=== PATIENT | male | born 1935 | race Caucasian/White ===

== ENCOUNTER 2018-10-07 20:27 | Inpatient (IN) | payer OTHER ==
[~2018-10-07] VITALS: Ht 177.8 cm; Wt 95.3 kg
[2018-10-07 20:35] VITALS: BP_SYST 146
--- NOTE | 2018-10-07 20:35 | NUR ---
Pt placed to ER bed 05. Pt c/o Lower back pain with urinary retention x 4 hours INDEPENDENT BEAUTY CONSULTANT. Pt s/p colonoscopy on Wednesday. Seen at urgent care on Wednesday and air was seen in his colon. Family members present and state that they noticed wheezing today. Airway pattent, respirations even and non-labored, BBS clear.
--- NOTE | 2018-10-07 20:35 | NUR ---
Denisha beard in ED - 10/07/[address] at [address] Marcial at [facility].
--- NOTE | 2018-10-07 20:40 | NUR ---
Lab at bedside.
--- NOTE | 2018-10-07 20:45 | NUR ---
Dr. Marcial at bedside.
--- NOTE | 2018-10-07 20:50 | NUR ---
X-ray at bedside.
[2018-10-07] MEDS ORDERED: LEVO88TA5 PO (20:52)
[2018-10-07] MEDS ORDERED: PRO40 PO (20:53)
[2018-10-07] MEDS ORDERED: FOLI0.8C PO (20:53)
[2018-10-07] MEDS ORDERED: AMLO2.5T50 PO (20:54)
[2018-10-07] MEDS ORDERED: TAMS0.4C96 PO (20:54)
[2018-10-07] MEDS ORDERED: RIVA15TA PO (20:55)
[2018-10-07] MEDS ORDERED: AMLO5TAB4 PO (20:55)
[2018-10-07] MEDS ORDERED: TERA5CAP4 PO (20:56)
[2018-10-07] MEDS ORDERED: FINA5TAB3 PO (20:56)
[2018-10-07] MEDS ORDERED: LOSA100T3 PO (20:57)
[2018-10-07] MEDS ORDERED: COR12.5 PO (20:57)
--- NOTE | 2018-10-07 21:00 | NUR ---
# 16 FR Victor catheter with use of sterile technique. Immediate return of 150 cc yellow and slightly cloudy urine noted. Bedside drainage bag placed below level of bladder. Urine sample collected and sent to lab. Pt tolerated procedure fair. Pt states that he feels much better after urine drained.
--- NOTE | 2018-10-07 21:06 | NUR ---
Pt to CT via stretcher.
[2018-10-07 21:10] LABS: BILIRUBIN,URINE NEGATIVE (NEGATIVE); CLARITY/URINE CLEAR (CLEAR); COLOR,URINE YELLOW (YELLOW); GLUCOSE,URINE NEGATIVE (NEGATIVE); KETONES,URINE NEGATIVE (NEGATIVE); LEUKOCYTE ESTERASE ,URINE NEGATIVE (NEGATIVE); NITRITE, URINE NEGATIVE (NEGATIVE); PH,URINE 5.5 (5.0-8.0); PROTEIN URINE 1+ (NEGATIVE)
[2018-10-07 21:11] LABS: BLOOD, URINE TRACE (NEGATIVE)
[2018-10-07 21:11] LABS: ANION GAP 10 (5-15); CREATININE 3.71 mg/dL (0.55-1.30); GLUCOSE 106 mg/dL (70-99); HEMATOCRIT 29.1 % (36-54); LYMPHOCYTES % (AUTO) 7.8 % (20.5-51.5); MEAN CORPUSCULAR HEMOGLOBIN 32 pg (27-31); MEAN CORPUSCULAR HGB CONC 34 % (32-36); MEAN CORPUSCULAR VOLUME 94 fL (79.0-98.0); MONOCYTES % (AUTO) 9.8 % (1.7-9.3); NEUTROPHILS % (AUTO) 80.9 % (40.0-70.0); PLATELET COUNT (AUTO) 162 K/uL (130-430); POTASSIUM 5.1 mmol/L (3.5-5.1); RED BLOOD CELL COUNT(AUTO) 3.11 MIL/uL (4.2-6.2); RED CELL DISTRIBUTION WIDTH 13.6 % (9.0-15.0); UREA NITROGEN, BLOOD 55 mg/dL (8-21); WHITE BLOOD COUNT (AUTO) 9.2 K/uL (4.8-10.8)
[2018-10-07 21:12] LABS: BASOPHILS % (AUTO) 0.2 % (0.0-2.0); EOSINOPHILS # (AUTO) 0.1 K/uL (0.0-0.4); EOSINOPHILS % (AUTO) 1.3 % (0.0-4.0); LYMPHOCYTES # (AUTO) 0.7 K/uL (1.0-5.5); MONOCYTES # (AUTO) 0.9 K/uL (0.0-1.0); NEUTROPHILS # (AUTO) 7.5 K/uL (1.8-7.7)
[2018-10-07 21:15] LABS: ALANINE AMINOTRANSFERASE 80 U/L (12-78); ASPARTATE AMINOTRANSFERASE 62 U/L (10-37); TOTAL BILIRUBIN 0.7 mg/dL (0.0-1.0)
[2018-10-07 21:17] LABS: SODIUM SERUM 113 mmol/L (136-145)
--- NOTE | 2018-10-07 21:17 | NUR ---
Pt returns from CT.
[2018-10-07 21:18] LABS: BACTERIA,URINE MODERATE /HPF (None Seen); WBC,URINE 0-3 /HPF (0-3)
[2018-10-07 21:18] LABS: CHLORIDE 83 mmol/L (98-107)
[2018-10-07 21:19] LABS: URINE AMORPHOUS URATE 2+ /HPF (None Seen)
[2018-10-07] MEDS ORDERED: AMOX-423 PO (21:23)
[2018-10-07] MEDS ORDERED: NACL 0.9% 1,000 ML IV ONE ×2 (21:30→22:45)
--- NOTE | 2018-10-07 21:30 | NUR ---
Pt sitting up in bed, denies c/o pain or discomfort, no needs verbalized. Total U/O per F/C 170 mL. Family members at bedside.
--- NOTE | 2018-10-07 22:43 | NUR ---
Dr. Marcial at bedside to update on POC.
[2018-10-07] MEDS ORDERED: LACTULOSE 20 GM/30 ML UDC PO ONE (23:00)
--- NOTE | 2018-10-08 00:12 | NUR ---
Patient will be admitted to care of Dr. Hazel. Admitted to Med/Surg unit. Will go to room 133A. Belongings list completed. Summary report printed. Phone report given to VANESSA Todd.
--- NOTE | 2018-10-08 00:25 | NUR ---
ADMISSION: The patient, TAL FIERRO, 83 y/o, M admitted by ZOHAIB JIMÉNEZ DO, WITH THE DIAGNOSIS OF HYPONATREMIA ,ER WHEELED PT TO ROOM 135 , AFTER ADMISSION WILL MOVE PT TO 133 A was given written information regarding hospital policies, unit procedures and contact persons.
[2018-10-08 00:27] VITALS: BP_SYST 141
[2018-10-08] MEDS ORDERED: DOCUSATE SODIUM 100 MG CAPSULE PO PRN (01:15)
[2018-10-08] MEDS ORDERED: ONDANSETRON HCL 4 MG/2 ML VIAL IVP PRN (01:15)
[2018-10-08] MEDS: NACL 0.9% 1,000 ML IV SCH ×3 (01:15→22:12)
[2018-10-08] MEDS ORDERED: MORPHINE 4 MG/ML INJ. SYRINGE IVP PRN (01:15)
[2018-10-08] MEDS ORDERED: MUPIROCIN 2% TOPICAL OINTMENT 22 GM TP PRN (01:15)
--- NOTE | 2018-10-08 02:30 | NUR ---
NURSING NOTE PT RESTING IN BED WITH EYES CLOSED. APPEARS COMFORTABLE. VISIBLE SYMMETRICAL RISE AND FALL OF CHEST. NO SIGNS OF ACUTE DISTRESS. SAFETY PRECAUTIONS IN PLACE: BED IN LOWEST POSITION, CALL LIGHT WITH PT, SIDE RAILS UP X 2, BED ALARM ON. WILL MONITOR.
--- NOTE | 2018-10-08 04:31 | NUR ---
NURSING NOTE PT RESTING IN BED WITH EYES CLOSED. APPEARS COMFORTABLE, EVEN RISE AND FALL OF CHEST TO ROOM AIR. NO NOTED DISTRESS AT THIS TIME. IVF INFUSING ORDERED. SAFETY PRECAUTIONS OBSERVED. WILL MONITOR.
--- NOTE | 2018-10-08 05:38 | NUR ---
CONSULTATION PAGED/CALLED Reason for Consultation: CIRRHOTIC FEATURES SEEN ON CT Person Who was Notified: SUZETTE Consulting Physician: DR. HYMAN Air Traffic Supervisor Specialty: GI Ordering Physician: ZOHAIB MONTGOMERY
--- NOTE | 2018-10-08 05:43 | NUR ---
CONSULTATION PAGED/CALLED Reason for Consultation: KIDNEY FAILURE Person Who was Notified: SUZETTE Consulting Physician: MARIANELA TORRE Medical Office Supervisor Specialty: NEPHRO Ordering Physician: ZOHAIB MONTGOMERY
[2018-10-08] MEDS: PANTOPRAZOLE SODIUM 40 MG TAB PO SCH (06:21)
--- NOTE | 2018-10-08 06:45 | NUR ---
SPOKE WITH DR. JIMÉNEZ REGARDING PT'S REQUEST FOR SLEEP MEDICATION DUE TO INSOMNIA. NEW ORDER RECEIVED. WILL CARRY OUT.
[2018-10-08 06:51] LABS: BASOPHILS % (AUTO) 0.2 % (0.0-2.0); EOSINOPHILS # (AUTO) 0.1 K/uL (0.0-0.4); EOSINOPHILS % (AUTO) 1.2 % (0.0-4.0); HEMATOCRIT 29.3 % (36-54); HEMOGLOBIN 9.5 g/dL (14.0-18.0); LYMPHOCYTES # (AUTO) 0.7 K/uL (1.0-5.5); LYMPHOCYTES % (AUTO) 7.8 % (20.5-51.5); MEAN CORPUSCULAR HEMOGLOBIN 31 pg (27-31); MEAN CORPUSCULAR HGB CONC 32 % (32-36); MEAN CORPUSCULAR VOLUME 95 fL (79.0-98.0); MONOCYTES # (AUTO) 0.8 K/uL (0.0-1.0); MONOCYTES % (AUTO) 9.6 % (1.7-9.3); NEUTROPHILS # (AUTO) 6.9 K/uL (1.8-7.7); NEUTROPHILS % (AUTO) 81.2 % (40.0-70.0); PLATELET COUNT (AUTO) 184 K/uL (130-430); RED CELL DISTRIBUTION WIDTH 12.7 % (9.0-15.0); WHITE BLOOD COUNT (AUTO) 8.5 K/uL (4.8-10.8)
--- NOTE | 2018-10-08 06:52 | NUR ---
CLOSING NOTE PT RESTING IN BED, NO REPORTS OF PAIN. IVF INFUSING ORDERED. ALL NEEDS MET DURING SHIFT. WILL ENDORSE CARE TO DAY SHIFT RN.
--- NOTE | 2018-10-08 07:06 | NUR ---
Dr. Mariposa Monge saw the patient at the bedside. Informed us that he will order for tap water enema and laxative as needed. Will endorse to AM nurse.
[2018-10-08 07:13] LABS: CHLORIDE 89 mmol/L (98-107); POTASSIUM 4.4 mmol/L (3.5-5.1); SODIUM SERUM 120 mmol/L (136-145)
[2018-10-08 07:14] LABS: ANION GAP 11 (5-15); CALCIUM 8.1 mg/dL (8.4-11.0); CREATININE 3.63 mg/dL (0.55-1.30); GLUCOSE 99 mg/dL (70-99); UREA NITROGEN, BLOOD 52 mg/dL (8-21)
[2018-10-08] MEDS: LEVOTHYROXINE SODIUM 0.088 MG TABLET PO SCH (07:14)
[2018-10-08 07:29] LABS: AMYLASE 60 U/L (0-100); LIPASE 326 U/L (73-393); PHOSPHORUS 3.6 mg/dL (2.7-4.5); THYROID STIMULATING HORMONE 3.34 uIu/mL (0.36-3.74)
[2018-10-08 07:42] VITALS: BP_SYST 134
--- NOTE | 2018-10-08 07:43 | NUR ---
Neuro Alert/oriented x4 , denies any pain , abdomen is distended denies any pain ,passing gas as verbalized ,plan of care/safety , lab result discussed with patient and son Quintin verbalized understanding.
[2018-10-08 07:50] LABS: CHOLESTEROL 93 mg/dL (<200); TRIGLYCERIDES 79 mg/dL (30-150)
[2018-10-08 07:51] LABS: HDL CHOLESTEROL 24 mg/dL (>45); LDL CHOLESTEROL 60 mg/dL (<100)
[2018-10-08] MEDS ORDERED: amLODIPine BESYLATE 5 MG TABLET PO SCH (09:00)
[2018-10-08] MEDS: TAMSULOSIN HCL 0.4 MG CAP PO SCH (09:23)
[2018-10-08] MEDS: amLODIPine BESYLATE 5 MG TABLET PO SCH (09:23)
[2018-10-08] MEDS: FINASTERIDE 5 MG TABLET (PROSCAR) PO SCH (09:23)
[2018-10-08] MEDS: CARVEDILOL 12.5 MG TABLET (COREG) PO SCH (09:24)
[2018-10-08] MEDS: POLYETHYLENE GLYCOL 3350, 17 GM/ POWD.PACK PO SCH ×2 (09:25→20:46)
--- NOTE | 2018-10-08 10:12 | NUR ---
MD rounds Seen and examined by Dr. Hazel at the bedside , patient alert/oriented , aware of what is happening , medication familiarity, spoke to family and patient explained plan of care verbalized understanding.
--- NOTE | 2018-10-08 10:40 | NUR ---
GI Assisted patient to bedside commode steady gait stand bye assist no dizziness , had a soft large bowel movement brown color , perineal care given, safety/fall precaution initiated. Addendum: 10/08/18 at 1051 by Daly Vargas RN Victor catheter urine pink no blood clot , perneal area with old blood , perineal care given no active bleeding, explained to patient possible cause of bleeding patient taking xarelto anf prostate problem,venalized understanding will continue to monitor.
[2018-10-08 11:18] VITALS: BP_SYST 144
[2018-10-08 13:13] LABS: ANION GAP 11 (5-15); CALCIUM 8.1 mg/dL (8.4-11.0); CREATININE 3.48 mg/dL (0.55-1.30); GLUCOSE 102 mg/dL (70-99); POTASSIUM 4.7 mmol/L (3.5-5.1); UREA NITROGEN, BLOOD 52 mg/dL (8-21)
--- NOTE | 2018-10-08 13:15 | NUR ---
Tap water enema Explained to patient tap water enema procedure step by step explained to patient and son Thomas verbalized understanding., position in left lateral, lubricated tip of the tube inserted slowly about 4 inches no resistance release water slowly , patient can feel it , put bed chatterjee as needed came out soft stool brown color medium amount , denies any discomfort, 1 1/2 liter tap water enema completed, perineal care given, patient instructed to call RN if he feel he is wet for cleaning.
[2018-10-08 13:17] LABS: CHLORIDE 85 mmol/L (98-107)
[2018-10-08 13:18] LABS: SODIUM SERUM 116 mmol/L (136-145)
--- NOTE | 2018-10-08 13:34 | NUR ---
Aylin Luna for critical lab result NA 116
[2018-10-08] MEDS ORDERED: NACL 0.9% 1,000 ML IV SCH (14:00)
--- NOTE | 2018-10-08 15:10 | NUR ---
Seen and examined by naturopathic physician spoke to patient and son Thomas explained progress and plan of care , continue IV saline monitoring sodium level.
[2018-10-08] MEDS ORDERED: SIMETHICONE 80 MG TAB.CHEW PO ONE (15:15)
--- NOTE | 2018-10-08 15:20 | NUR ---
GI Patient complaining of abdominal distention, passing gas at times ,simethicone po given as prescribed by DR. Luna, explained medication indication/side effect verbalized understanding.
[2018-10-08 16:32] VITALS: BP_SYST 131
[2018-10-08] MEDS: RIVAROXABAN 15 MG TABLET PO SCH (18:00)
--- NOTE | 2018-10-08 18:06 | NUR ---
Xarelto on hold today Spoke to Dr. JIMÉNEZ , urine output the whole day is pink to red no blood clot no active bleeding penile area after cleaning in the morning , per Dr. Jiménez to hold the dose for today, patient and daughter Arleen informed the reason, verbalized understanding.
--- NOTE | 2018-10-08 18:39 | NUR ---
Patient instructed NPO post midnight for abdominal ultrasound in AM, verbalized understanding.
--- NOTE | 2018-10-08 19:21 | NUR ---
OPENING NOTE RECEIVED CARE OF PT. PT LYING IN BED, APPEARS COMFORTABLE, FAMILY AT BEDSIDE. NO ACUTE DISTRESS NOTED. INSTRUCTED PT TO CALL FOR ASSISTANCE. SAFETY PRECAUTIONS IN PLACE. WILL MONITOR.
[2018-10-08 20:00] VITALS: BP_SYST 121
[2018-10-08 20:39] LABS: ANION GAP 9 (5-15); CALCIUM 7.8 mg/dL (8.4-11.0); CHLORIDE 88 mmol/L (98-107); CREATININE 3.44 mg/dL (0.55-1.30); GLUCOSE 109 mg/dL (70-99); POTASSIUM 4.6 mmol/L (3.5-5.1); UREA NITROGEN, BLOOD 50 mg/dL (8-21)
[2018-10-08] MEDS: TEMAZEPAM 15 MG CAPSULE PO PRN (20:45)
[2018-10-08] MEDS: SIMETHICONE 80 MG TAB.CHEW PO SCH (20:45)
--- NOTE | 2018-10-08 20:45 | NUR ---
INSOMNIA/RESTORIL ADMINISTERED PT REPORTING INSOMNIA. RESTORIL 15 MG PO ADMINISTERED. MEDICATION AND POTENTIAL SIDE EFFECTS EXPLAINED. SAFETY PRECAUTIONS IN PLACE, FAMILY AT BEDSIDE. WILL MONITOR.
[2018-10-08] MEDS: TERAZOSIN HCL 5 MG CAPSULE (HYTRIN) PO SCH (20:46)
[2018-10-08 20:54] LABS: SODIUM SERUM 117 mmol/L (136-145)
--- NOTE | 2018-10-08 20:55 | NUR ---
CRITICAL SODIUM LAB SPOKE TO RESHMA FROM LAB, WAS INFORMED PT'S SODIUM WAS 117. WILL FOLLOW UP WITH .
--- NOTE | 2018-10-08 21:01 | NUR ---
PAGED DR. FORD PAGED DR. FORD REGARDING A CRITICAL SODIUM VALUE. SPOKE TO KWAKU FROM EXCHANGE. WILL AWAIT CALL BACK.
[2018-10-08 21:06] LABS: CHLORIDE,URINE RANDOM 34 mmol/L (55-125); URINE SODIUM, RANDOM 25 mmol/L (40-220)
--- NOTE | 2018-10-08 21:16 | NUR ---
PAGED DR. FORD SECOND TIME PAGED DR. FORD REGARDING CRITICAL SODIUM VALUE OF 117. SPOKE WITH KWAKU FROM EXCHANGE.
--- NOTE | 2018-10-08 21:30 | NUR ---
PAGED DR. FORD THIRD TIME PAGED DR. FORD THIRD TIME REGARDING CRITICAL SODIUM VALUE 117. SPOKE WITH KWAKU FROM EXCHANGE.
--- NOTE | 2018-10-08 21:45 | NUR ---
PAGED DR. FORD FOURTH TIME PAGED DR. FORD REGARDING CRITICAL SODIUM VALUE 117. SPOKE WITH JOSE FROM EXCHANGE.
--- NOTE | 2018-10-08 21:47 | NUR ---
SPOKE WITH DR. FORD REGARDING PT'S CRITICAL SODIUM OF 117. RECEIVED NEW ORDERS. WILL CARRY OUT.
--- NOTE | 2018-10-08 23:27 | NUR ---
NURSING NOTE PT RESTING IN BED WITH EYES CLOSED. APPEARS COMFORTABLE AT THIS TIME. NO ACUTE DISTRESS NOTED. BREATHING IS EVEN AND EFFORTLESS TO ROOM AIR, VISIBLE SYMMETRICAL RISE AND FALL OF CHEST. IVF INFUSING AT ORDERED RATE. SAFETY PRECAUTIONS IN PLACE. WILL MONITOR.
--- NOTE | 2018-10-09 | NUR ---
NPO AT MIDNIGHT NPO [place]E PLACED AT BEDSIDE, FOOD AND DRINK REMOVED FROM PT AREA, PT EDUCATED REGARDING NPO STATUS. WILL MONITOR.
[2018-10-09 00:12] VITALS: BP_SYST 128
--- NOTE | 2018-10-09 02:15 | NUR ---
NEW IV IN LEFT FOREARM NEW IV GAUGE 22 INSERTED IN LEFT FOREARM. GOOD BLOOD RETURN AND FLUSHING WELL. PT TOLERATED WELL. IVF INFUSING ORDERED. WILL MONITOR.
--- NOTE | 2018-10-09 04:05 | NUR ---
NURSING NOTE PT RESTING IN BED WITH EYES CLOSED. NO SIGN OF ACUTE DISTRESS NOTED. VISIBLE SYMMETRICAL RISE AND FALL OF CHEST. SAFETY PRECAUTIONS IN PLACE. WILL MONITOR.
--- NOTE | 2018-10-09 05:18 | NUR ---
COMPLETE LINEN CHANGE PT HAD SMALL BM. PT CHANGED AND LINEN CHANGE DONE. PT DENIES PAIN AT THIS TIME. PT REPOSITIONED FOR COMFORT. NO SIGNS OF DISTRESS. SAFETY PRECAUTIONS IN PLACE. WILL MONITOR.
--- NOTE | 2018-10-09 06:12 | NUR ---
CLOSING NOTE PT RESTING IN BED, DENIES CURRENT PAIN, APPEARS COMFORTABLE. NO ACUTE DISTRESS. IVF INFUSING ORDERED. ALL NEEDS MET DURING SHIFT. WILL ENDORSE CARE TO DAY SHIFT RN.
[2018-10-09] MEDS: PANTOPRAZOLE SODIUM 40 MG TAB PO SCH (06:24)
[2018-10-09] MEDS: LEVOTHYROXINE SODIUM 0.088 MG TABLET PO SCH (06:24)
--- NOTE | 2018-10-09 06:54 | NUR ---
ROUNDS-DR. GLEZ SPOKE WITH DR. GLEZ REGARDING PT'S PLAN OF CARE. DR. GLEZ SAID THAT HE WILL CONTINUE MIRALAX FOR THE PT.
[2018-10-09 07:12] LABS: INR 1.1 (0.80-1.20); PROTHROMBIN TIME 11.3 SECS (9.5-12.5)
[2018-10-09 07:16] LABS: ANION GAP 10 (5-15); CALCIUM 7.7 mg/dL (8.4-11.0); CHLORIDE 89 mmol/L (98-107); CREATININE 3.34 mg/dL (0.55-1.30); GLUCOSE 96 mg/dL (70-99); PHOSPHORUS 3.2 mg/dL (2.7-4.5); POTASSIUM 4.7 mmol/L (3.5-5.1); UREA NITROGEN, BLOOD 49 mg/dL (8-21)
[2018-10-09 07:18] LABS: BASOPHILS % (AUTO) 0.1 % (0.0-2.0); EOSINOPHILS # (AUTO) 0.1 K/uL (0.0-0.4); EOSINOPHILS % (AUTO) 1.2 % (0.0-4.0); HEMATOCRIT 27.5 % (36-54); HEMOGLOBIN 9.3 g/dL (14.0-18.0); LYMPHOCYTES # (AUTO) 0.6 K/uL (1.0-5.5); LYMPHOCYTES % (AUTO) 9.2 % (20.5-51.5); MEAN CORPUSCULAR HEMOGLOBIN 32 pg (27-31); MEAN CORPUSCULAR HGB CONC 34 % (32-36); MEAN CORPUSCULAR VOLUME 93 fL (79.0-98.0); MONOCYTES # (AUTO) 0.9 K/uL (0.0-1.0); MONOCYTES % (AUTO) 13.6 % (1.7-9.3); NEUTROPHILS # (AUTO) 5.3 K/uL (1.8-7.7); NEUTROPHILS % (AUTO) 75.9 % (40.0-70.0); PLATELET COUNT (AUTO) 173 K/uL (130-430); RED BLOOD CELL COUNT(AUTO) 2.95 MIL/uL (4.2-6.2); RED CELL DISTRIBUTION WIDTH 12.5 % (9.0-15.0); WHITE BLOOD COUNT (AUTO) 6.9 K/uL (4.8-10.8)
--- NOTE | 2018-10-09 07:25 | NUR ---
received patient report at the bedside. patient is aao x 4. no sob nor pain noted. has iv access on the left forearm #22. with iv fluids of normal saline 100cc/hr infusing on well. lungs bilaterally clear. abdomen soft and non distended. has quezada catheter in placed draining orange color about 350cc. instructed to call for assistance. will continue to monitor patients status.
[2018-10-09 07:33] LABS: SODIUM SERUM 118 mmol/L (136-145)
[2018-10-09 07:50] LABS: TOTAL IRON BIND. CAPACITY 190 ug/dL (250-450)
--- NOTE | 2018-10-09 08:01 | NUR ---
and daughther is at the bedside. no distress noted.
--- NOTE | 2018-10-09 08:01 | NUR ---
still on npo status for ultrasound of the abdomen. patient is aware.
[2018-10-09 08:02] VITALS: BP_SYST 139
--- NOTE | 2018-10-09 08:03 | NUR ---
dr brasher called for result of Na 118. awaiting to call back.
--- NOTE | 2018-10-09 08:13 | NUR ---
WELDING INSPECTOR FLORIST, DR FORD WAS CALLED RE: ELEVATED NA. SPOKE TO MEGAN.
--- NOTE | 2018-10-09 08:15 | NUR ---
dr brasher called no order made. will come to see the patient today.
--- NOTE | 2018-10-09 08:40 | NUR ---
elizabeth biometrics technician called will come to do procedure.
[2018-10-09] MEDS: FINASTERIDE 5 MG TABLET (PROSCAR) PO SCH (09:00)
--- NOTE | 2018-10-09 09:48 | NUR ---
just had ultrsound of the abdomen done. awaiting for results.
[2018-10-09] MEDS: CARVEDILOL 12.5 MG TABLET (COREG) PO SCH (10:10)
[2018-10-09] MEDS: POLYETHYLENE GLYCOL 3350, 17 GM/ POWD.PACK PO SCH ×2 (10:10→20:47)
[2018-10-09] MEDS: TAMSULOSIN HCL 0.4 MG CAP PO SCH (10:11)
[2018-10-09] MEDS: SIMETHICONE 80 MG TAB.CHEW PO SCH ×3 (10:11→20:45)
[2018-10-09] MEDS: amLODIPine BESYLATE 5 MG TABLET PO SCH (10:11)
[2018-10-09] MEDS: NACL 0.9% 1,000 ML IV SCH (10:15)
--- NOTE | 2018-10-09 10:29 | NUR ---
dr sandoval came and see the patient. made orders. for physical therapy evaluation tomorrow.
[2018-10-09] MEDS ORDERED: FLUTICASONE PROPIONATE 50 mCg/SPRAY 16 GM NS ONE (10:30)
[2018-10-09] MEDS ORDERED: IPRATROPIUM/ALBUTEROL SULFATE 3 ML AMPUL.NEB (DUONEB) INH PRN (10:30)
--- NOTE | 2018-10-09 10:40 | NUR ---
medication given and had tray for breakfast after ultrasound of abdomen.
--- NOTE | 2018-10-09 11:52 | NUR ---
hob elevated. family at the bedside. non productive cough noted.
[2018-10-09 12:28] VITALS: BP_SYST 122
--- NOTE | 2018-10-09 12:30 | NUR ---
whole family at the bedside. still with bilateral crackels
--- NOTE | 2018-10-09 13:30 | NUR ---
dr brasher called requested to have patient on telemetry monitored.
--- NOTE | 2018-10-09 13:32 | NUR ---
dr brasher came and evaluate made orders.
[2018-10-09] MEDS ORDERED: FUROSEMIDE 40 MG/4 ML VIAL IVP ONE (13:45)
--- NOTE | 2018-10-09 14:10 | NUR ---
lasix 49 mg iv given. lungs bilaterally with crackles. O2Sat on room air is 97%. no sob noted. normal saline iv decreased on 30cc/hr infusing on well. call lights within reach. instructed to call for assistance.
--- NOTE | 2018-10-09 15:30 | NUR ---
respiratory treatment given by the therapist at this time. feels better
[2018-10-09 16:06] LABS: HEPATITIS A AB, IgM Negative (Negative); HEPATITIS B CORE AB, IgM Negative (Negative); HEPATITIS B SURFACE AG Negative (Negative)
[2018-10-09 16:20] VITALS: BP_SYST 130
--- NOTE | 2018-10-09 16:30 | NUR ---
FAMILY AT THE BEDSIDE. NO ACUTE DISTRESS NOTED.
[2018-10-09 16:34] VITALS: BP_SYST 122
--- NOTE | 2018-10-09 18:00 | NUR ---
xarelto 15 mg po given. no sob nor distress noted.
[2018-10-09] MEDS: MONTELUKAST 10 MG TABLET PO SCH (18:06)
[2018-10-09] MEDS: RIVAROXABAN 15 MG TABLET PO SCH (18:07)
--- NOTE | 2018-10-09 19:05 | NUR ---
ENDORSED TO JULIETH RN AT THE BEDSIDE. PATIENT IS STABLE.
--- NOTE | 2018-10-09 19:10 | NUR ---
OPENING NOTE Bedside report received from VANESSA Dahl. Patient received lying in bed, HOB raised, no s/s of acute distress noted. Breathing is even and unlabored. IVF infusing well, IV site patent, no signs of infiltration or infection. Victor attached, secured, and draining by gravity. Patient's and daughter present at bedside. Call light with patient. Bed alarm on. SCDs attached and operating. Will continue to monitor.
[2018-10-09 19:38] LABS: ANION GAP 10 (5-15); CALCIUM 7.8 mg/dL (8.4-11.0); CHLORIDE 90 mmol/L (98-107); CREATININE 3.47 mg/dL (0.55-1.30); GLUCOSE 106 mg/dL (70-99); POTASSIUM 4.8 mmol/L (3.5-5.1); SODIUM SERUM 121 mmol/L (136-145); UREA NITROGEN, BLOOD 50 mg/dL (8-21)
[2018-10-09 20:00] VITALS: BP_SYST 140
[2018-10-09] MEDS: TEMAZEPAM 15 MG CAPSULE PO PRN (20:46)
[2018-10-09] MEDS: TERAZOSIN HCL 5 MG CAPSULE (HYTRIN) PO SCH (20:46)
[2018-10-09] MEDS: FLUTICASONE PROPIONATE 50 mCg/SPRAY 16 GM NS SCH (20:47)
--- NOTE | 2018-10-09 21:00 | NUR ---
SPOEK WITH DR JIMÉNEZ:BNP TEST Informed Dr. Jiménez that family would like to have BNP taken again. MD ordered for it to be drawn in the morning. Family members and patient made aware. Patient in bed, no signs of discomfort noted. Chest rise and fall even bilaterally. Call light with patient. Bed alarm on. Will continue to monitor.
--- NOTE | 2018-10-09 23:00 | NUR ---
ROUNDS Patient in bed sleeping at this time. No s/s of acute distress noted. IVF infusing well. Victor attached, secured and draining by gravity. SCDs attached and operating. Will continue to monitor. Call light with patient.
[2018-10-10 00:41] VITALS: BP_SYST 132
--- NOTE | 2018-10-10 01:00 | NUR ---
ROUNDS Patient sleeping comfortably. HOB raised, no signs of discomfort noted. Chest rise and fall even bilaterally. IVF infusing well. Call light with patient. Bed alarm on. Will continue to monitor.
--- NOTE | 2018-10-10 02:00 | NUR ---
BREATHING TREATMENT Patient requested for breathing treatment at this time. RT at bedside.
--- NOTE | 2018-10-10 04:00 | NUR ---
ROUNDS Patient in bed sleeping. No signs of discomfort noted. Chest rise and fall even bilaterally. IVF infusing well. Call light with patient. Bed alarm on. Will continue to monitor.
[2018-10-10] MEDS: NACL 0.9% 1,000 ML IV SCH (04:07)
[2018-10-10] MEDS: PANTOPRAZOLE SODIUM 40 MG TAB PO SCH (06:12)
[2018-10-10] MEDS: LEVOTHYROXINE SODIUM 0.088 MG TABLET PO SCH (06:12)
[2018-10-10 06:26] LABS: BASOPHILS % (AUTO) 0.5 % (0.0-2.0); EOSINOPHILS # (AUTO) 0.2 K/uL (0.0-0.4); EOSINOPHILS % (AUTO) 2.9 % (0.0-4.0); HEMATOCRIT 27.7 % (36-54); HEMOGLOBIN 9.2 g/dL (14.0-18.0); LYMPHOCYTES # (AUTO) 0.8 K/uL (1.0-5.5); LYMPHOCYTES % (AUTO) 12.2 % (20.5-51.5); MEAN CORPUSCULAR HEMOGLOBIN 31 pg (27-31); MEAN CORPUSCULAR HGB CONC 33 % (32-36); MEAN CORPUSCULAR VOLUME 95 fL (79.0-98.0); MONOCYTES # (AUTO) 0.9 K/uL (0.0-1.0); MONOCYTES % (AUTO) 13.4 % (1.7-9.3); NEUTROPHILS # (AUTO) 4.7 K/uL (1.8-7.7); PLATELET COUNT (AUTO) 188 K/uL (130-430); RED BLOOD CELL COUNT(AUTO) 2.92 MIL/uL (4.2-6.2); RED CELL DISTRIBUTION WIDTH 12.9 % (9.0-15.0); WHITE BLOOD COUNT (AUTO) 6.6 K/uL (4.8-10.8)
--- NOTE | 2018-10-10 06:29 | NUR ---
CLOSING NOTE Patient in bed resting at this time. No s/s of acute distress noted. Breathing even and unlabored. HOB raised. Patient denies pain or discomfort at this time. Victor attached, secured and draining by gravity. SCDs attached and operating. Patient's present at bedside. Patient turned/repositioned every two hours throughout shift. All needs met throughout shift. Fall and safety precautions maintained throughout shift. Will continue to monitor until patient care is endorsed to oncoming dayshift nurse.
[2018-10-10 06:48] LABS: ALANINE AMINOTRANSFERASE 67 U/L (12-78); ALBUMIN 2.6 g/dL (3.4-4.8); ANION GAP 9 (5-15); ASPARTATE AMINOTRANSFERASE 37 U/L (10-37); CHLORIDE 91 mmol/L (98-107); CREATININE 3.52 mg/dL (0.55-1.30); GLUCOSE 90 mg/dL (70-99); PHOSPHORUS 3.6 mg/dL (2.7-4.5); POTASSIUM 4.6 mmol/L (3.5-5.1); SODIUM SERUM 121 mmol/L (136-145); TOTAL BILIRUBIN 0.7 mg/dL (0.0-1.0); UREA NITROGEN, BLOOD 49 mg/dL (8-21)
[2018-10-10 08:00] VITALS: BP_SYST 137
--- NOTE | 2018-10-10 09:23 | NUR ---
Pulmo consult called: for Dr. Bautista, regarding SOB, ordered by Dr. Weber.
[2018-10-10] MEDS: SIMETHICONE 80 MG TAB.CHEW PO SCH ×3 (09:30→20:54)
[2018-10-10] MEDS ORDERED: IPRATROPIUM BROM 0.5 MG/2.5 ML VIAL.NEB (ATROVENT) INH PRN (09:30)
[2018-10-10] MEDS: FINASTERIDE 5 MG TABLET (PROSCAR) PO SCH (09:30)
[2018-10-10] MEDS ORDERED: IPRATROPIUM BROM 0.5 MG/2.5 ML VIAL.NEB (ATROVENT) INH ONE (09:30)
[2018-10-10] MEDS ORDERED: ALBUTEROL SULFATE 0.083% 2.5 MG/3 ML VIAL.NEB INH PRN (09:30)
[2018-10-10] MEDS: amLODIPine BESYLATE 5 MG TABLET PO SCH (09:30)
[2018-10-10] MEDS ORDERED: ALBUTEROL SULFATE 0.083% 2.5 MG/3 ML VIAL.NEB INH ONE (09:30)
[2018-10-10] MEDS: POLYETHYLENE GLYCOL 3350, 17 GM/ POWD.PACK PO SCH ×2 (09:31→20:54)
[2018-10-10] MEDS: TAMSULOSIN HCL 0.4 MG CAP PO SCH (09:31)
[2018-10-10] MEDS: FLUTICASONE PROPIONATE 50 mCg/SPRAY 16 GM NS SCH ×2 (09:35→20:55)
[2018-10-10] MEDS: CARVEDILOL 12.5 MG TABLET (COREG) PO SCH (10:21)
[2018-10-10] MEDS ORDERED: methylPREDNISolone SOD SUCC 40 MG/ML VIAL IVP ONE (10:45)
[2018-10-10] MEDS: PIPERACILLIN/TAZO 2.25G/DEX-IS 50 ML IV SCH ×3 (11:46→23:05)
[2018-10-10 12:43] VITALS: BP_SYST 124
[2018-10-10] MEDS ORDERED: FUROSEMIDE 40 MG/4 ML VIAL ONE (17:03)
[2018-10-10] MEDS ORDERED: METOLAZONE 5 MG TABLET ONE (17:07)
[2018-10-10] MEDS: MONTELUKAST 10 MG TABLET PO SCH (18:00)
[2018-10-10] MEDS: RIVAROXABAN 15 MG TABLET PO SCH (18:00)
--- NOTE | 2018-10-10 20:10 | NUR ---
Opening note: Received report from scout MENDEZ. Patient is sitting in recliner at bedside surrounded by family members. Patient not in any acute distress. Alert and oriented x3. Receiving NS at 30 ML/HR to LFA IV site, site is patent and benign. Victor catheter draining yellow urine to gravity. Call light is with patient. Safety, fall precautions in place. Will continue with plan of care.
[2018-10-10] MEDS: IPRATROPIUM BROM 0.5 MG/2.5 ML VIAL.NEB (ATROVENT) INH SCH ×2 (20:32→23:00)
[2018-10-10] MEDS: ALBUTEROL SULFATE 0.083% 2.5 MG/3 ML VIAL.NEB INH SCH ×2 (20:32→23:00)
[2018-10-10 20:39] VITALS: BP_SYST 135
[2018-10-10] MEDS: TERAZOSIN HCL 5 MG CAPSULE (HYTRIN) PO SCH (20:54)
[2018-10-10] MEDS: methylPREDNISolone SOD SUCC 40 MG/ML VIAL IVP SCH (20:55)
--- NOTE | 2018-10-10 22:21 | NUR ---
Rounds: Patient is awake in bed, is at bedside. Patient does not show any acute distress. Respirations are even, unlabored on room air. Call light with patient. Will continue monitoring.
--- NOTE | 2018-10-11 00:32 | NUR ---
Rounds: Patient is resting comfortably with eyes closed, does not show any acute distress. Breathing is even and unlabored on room air. Call light with patient. Safety, fall precautions in place. Will continue monitoring.
[2018-10-11 01:24] VITALS: BP_SYST 130
--- NOTE | 2018-10-11 02:41 | NUR ---
Rounds: Patient is resting in bed with eyes closed, no acute distress noted. Respirations even, unlabored on room air. Call light is with patient. Will continue to monitor.
[2018-10-11] MEDS: IPRATROPIUM BROM 0.5 MG/2.5 ML VIAL.NEB (ATROVENT) INH SCH ×6 (03:00→23:00)
[2018-10-11] MEDS: ALBUTEROL SULFATE 0.083% 2.5 MG/3 ML VIAL.NEB INH SCH ×6 (03:00→23:00)
--- NOTE | 2018-10-11 04:56 | NUR ---
Rounds: Patient is sleeping. No acute distress. Breathing is even and unlabored on room air. Call light is with patient. Will continue monitoring.
[2018-10-11 05:12] LABS: CERULOPLASMIN 23.3 mg/dL (16.0-31.0); FERRITIN 196 ng/mL (30-400)
[2018-10-11] MEDS: PIPERACILLIN/TAZO 2.25G/DEX-IS 50 ML IV SCH ×4 (05:47→23:22)
[2018-10-11] MEDS: PANTOPRAZOLE SODIUM 40 MG TAB PO SCH (06:32)
[2018-10-11] MEDS: LEVOTHYROXINE SODIUM 0.088 MG TABLET PO SCH (06:32)
[2018-10-11 06:40] LABS: ANION GAP 10 (5-15); CALCIUM 8.7 mg/dL (8.4-11.0); CHLORIDE 91 mmol/L (98-107); CREATININE 3.69 mg/dL (0.55-1.30); GLUCOSE 153 mg/dL (70-99); POTASSIUM 4.3 mmol/L (3.5-5.1); SODIUM SERUM 122 mmol/L (136-145); UREA NITROGEN, BLOOD 53 mg/dL (8-21)
--- NOTE | 2018-10-11 06:50 | NUR ---
Closing note: Patient is resting in bed, remains at bedside. Tolerating room air. IV site is patent and benign. All needs met. Will endorse care to dayshift RN.
--- NOTE | 2018-10-11 06:54 | NUR ---
MD rounds: Dr. Monge at bedside to assess patient. Order given for mineral oil enema x1 to be administered today for patient's constipation. MD will input order. Will endorse to scout MENDEZ.
[2018-10-11 07:41] VITALS: BP_SYST 134
--- NOTE | 2018-10-11 07:51 | NUR ---
Opening notes, Pt in bed, family at bedside. pt is aaox4, denies pain, lao speaking. no fever. pt receiving breathing treatment. safety precaution in place. call light in reach. bed in low position. will cont to monitor.
[2018-10-11] MEDS ORDERED: MINERAL OIL 133 ML ENEMA RC ONE (08:00)
[2018-10-11] MEDS: SIMETHICONE 80 MG TAB.CHEW PO SCH ×3 (09:11→21:11)
[2018-10-11] MEDS: TAMSULOSIN HCL 0.4 MG CAP PO SCH (09:11)
[2018-10-11] MEDS: CARVEDILOL 12.5 MG TABLET (COREG) PO SCH (09:12)
[2018-10-11] MEDS: methylPREDNISolone SOD SUCC 40 MG/ML VIAL IVP SCH ×2 (09:12→21:11)
[2018-10-11] MEDS: amLODIPine BESYLATE 5 MG TABLET PO SCH (09:12)
[2018-10-11] MEDS: FINASTERIDE 5 MG TABLET (PROSCAR) PO SCH (09:12)
[2018-10-11] MEDS: POLYETHYLENE GLYCOL 3350, 17 GM/ POWD.PACK PO SCH ×2 (09:13→21:10)
[2018-10-11] MEDS: FLUTICASONE PROPIONATE 50 mCg/SPRAY 16 GM NS SCH ×2 (09:13→21:11)
--- NOTE | 2018-10-11 11:48 | NUR ---
pt walking with fww with physical therapy in the hallway. pt appears to be tolerating well. no sob noted.
[2018-10-11 12:18] VITALS: BP_SYST 134
--- NOTE | 2018-10-11 14:00 | NUR ---
pt in bed, no c/o pain, no sob, wheezing gone at this time. family at bedside.
--- NOTE | 2018-10-11 14:07 | NUR ---
PHYSICAL THERAPY EVALUATION WAS COMPLETED TODAY. YESTERDAY PATIENT WAS TOO COMBATIVE TO PARTICIPATE IN THE EVALUATION. PLEASE SEE PT'S NOTE IN THE DOWN TIME DOCUMENTATION FORM IN THE CHART AT THE NURSING UNIT.
--- NOTE | 2018-10-11 14:45 | NUR ---
pt in bed, denies pain, no sob, no resp distress. family at bedside.
[2018-10-11 15:03] LABS: ANTI-SMOOTH MUSCLE AB 22 Units (0-19)
--- NOTE | 2018-10-11 15:29 | NUR ---
Dietitian Recommendations * Recommend 2 gm Na, CCHO diet w/ Glucerna BID (ONS provides an additional 440 kcal/day and 20 gm protein/day) LP, RD Please refer to Nutrition Assessment for details.
[2018-10-11 16:53] VITALS: BP_SYST 133
[2018-10-11] MEDS: RIVAROXABAN 15 MG TABLET PO SCH (17:35)
[2018-10-11] MEDS: MONTELUKAST 10 MG TABLET PO SCH (17:35)
--- NOTE | 2018-10-11 18:54 | NUR ---
closing notes, pt has been stable, has episode of wheezing today after walking with p.t. , given breathing treaments by rpeña , seen by dr randhawa today. no order for dc home. family is aware.
[2018-10-11] MEDS ORDERED: FUROSEMIDE 40 MG/4 ML VIAL IVP ONE (19:00)
[2018-10-11] MEDS ORDERED: METOLAZONE 2.5 MG TABLET PO ONE (19:00)
--- NOTE | 2018-10-11 19:40 | NUR ---
Initial note: Received handoff report from dayshift RN at patient's bedside. Patient is awake, sitting up in bed, not in any acute distress. Family members at bedside. Saline locked IV noted to patient's left forearm, site is patent and benign. Victor catheter draining yellow urine to gravity. Call light with patient. Safety, fall precautions in place. Will continue with plan of care.
--- NOTE | 2018-10-11 19:43 | NUR ---
Med pass: Administered ordered Lasix 60 MG IVP and Metazalone 2.5 MG PO per MD order. Education provided to patient and family members, understanding verbalized. BP is 139/71. Call light with patient. Safety, fall precautions in place. Will continue monitoring.
[2018-10-11 20:00] VITALS: BP_SYST 139
[2018-10-11 20:06] LABS: ANTI NUCLEAR AB WITH REFLEX Negative (Negative)
[2018-10-11] MEDS: TERAZOSIN HCL 5 MG CAPSULE (HYTRIN) PO SCH (21:14)
--- NOTE | 2018-10-11 22:02 | NUR ---
Rounds: Patient awake in bed, family members at bedside. No acute distress. No complaints of shortness of breath. Call light with patient, will continue to monitor.
--- NOTE | 2018-10-12 00:06 | NUR ---
Rounds: Patient is sleep, no acute distress. Breathing is even, unlabored on room air. Victor catheter draining well. Call light with patient. Will continue monitoring.
[2018-10-12 00:39] VITALS: BP_SYST 134
--- NOTE | 2018-10-12 02:21 | NUR ---
Rounds: Patient is resting in bed with eyes closed. Does not show any acute distress. Tolerating room air. Call light with patient. Safety, fall precautions in place. Will continue monitoring.
[2018-10-12] MEDS: IPRATROPIUM BROM 0.5 MG/2.5 ML VIAL.NEB (ATROVENT) INH SCH ×6 (03:00→23:30)
[2018-10-12] MEDS: ALBUTEROL SULFATE 0.083% 2.5 MG/3 ML VIAL.NEB INH SCH ×6 (03:00→23:30)
--- NOTE | 2018-10-12 04:50 | NUR ---
Rounds: Patient is sleeping. No signs of acute distress. Breathing is even, unlabored on room air. Call light is with patient. Will continue monitoring.
[2018-10-12] MEDS: PIPERACILLIN/TAZO 2.25G/DEX-IS 50 ML IV SCH ×4 (06:30→23:58)
[2018-10-12] MEDS: PANTOPRAZOLE SODIUM 40 MG TAB PO SCH (06:30)
[2018-10-12] MEDS: LEVOTHYROXINE SODIUM 0.088 MG TABLET PO SCH (06:30)
--- NOTE | 2018-10-12 06:58 | NUR ---
Closing note: Patient is awake in bed watching TV, no acute distress. Breathing is even and unlabored on room air. IV fluids infusing well to patient's left AC IV site. Victor catheter draining well to gravity. All needs met. Call light with patient. Will endorse care to dayshift RN.
[2018-10-12 07:04] LABS: ANION GAP 12 (5-15); CALCIUM 8.8 mg/dL (8.4-11.0); CHLORIDE 94 mmol/L (98-107); CREATININE 4.13 mg/dL (0.55-1.30); GLUCOSE 139 mg/dL (70-99); POTASSIUM 4.1 mmol/L (3.5-5.1); SODIUM SERUM 129 mmol/L (136-145); UREA NITROGEN, BLOOD 59 mg/dL (8-21)
--- NOTE | 2018-10-12 07:45 | NUR ---
AM rounds patient resting in bed, a/ox4, denies pain, assessment complete, Victor Catheter in place draining to gravity, IV line is patent and infusing well, educated patient and family on plan of care and call light system and to call for any assistance, he verbalized understanding at this time, clarified some questions about medications and labs, bed in lowest position, three side rails up, call light within reach, fall and aspiration precautions in place.
[2018-10-12 08:38] VITALS: BP_SYST 146
[2018-10-12] MEDS: FLUTICASONE PROPIONATE 50 mCg/SPRAY 16 GM NS SCH ×2 (09:00→20:51)
[2018-10-12] MEDS: SIMETHICONE 80 MG TAB.CHEW PO SCH ×3 (09:21→20:50)
[2018-10-12] MEDS: TAMSULOSIN HCL 0.4 MG CAP PO SCH (09:21)
[2018-10-12] MEDS: methylPREDNISolone SOD SUCC 40 MG/ML VIAL IVP SCH ×2 (09:21→20:50)
[2018-10-12] MEDS: FINASTERIDE 5 MG TABLET (PROSCAR) PO SCH (09:21)
[2018-10-12] MEDS: amLODIPine BESYLATE 5 MG TABLET PO SCH (09:21)
[2018-10-12] MEDS: CARVEDILOL 12.5 MG TABLET (COREG) PO SCH (09:22)
[2018-10-12] MEDS: POLYETHYLENE GLYCOL 3350, 17 GM/ POWD.PACK PO SCH ×2 (09:22→20:51)
--- NOTE | 2018-10-12 09:25 | NUR ---
RN rounds/medication patient resting in bed, awake, denies pain, denies shortness of breath, educated on medications uses and potential side effects, he verbalized understanding and tolerated well, no other needs at this time, bed in lowest position, two side rails up, call light within reach, bed close to nursing station, fall and aspiration precautions in place.
--- NOTE | 2018-10-12 11:42 | NUR ---
RN rounds/medication patient resting in chair at bedside, awake, denies pain, educated on IV antibiotic uses and potential side effects, he verbalized understanding, IV line is patent and infusing well, no s/s of infiltration, no other needs at this time, call light within reach, fall and aspiration precautions.
[2018-10-12 12:49] VITALS: BP_SYST 141
--- NOTE | 2018-10-12 13:51 | NUR ---
RN rounds patient resting in chair at bedside, eating lunch, denies pain, stable condition, continuing to monitor, call light within reach, fall and aspiration precautions in place, family at bedside, inquiring about discharge today, family stated that Dr. Weber was at bedside but he said he will be back later, will follow up as needed.
--- NOTE | 2018-10-12 15:53 | NUR ---
RN rounds patient resting in chair, awake, denies pain, answered questions that family had regarding plan of care, awaiting on MD rounds, no other needs at this time, call light within reach, fall and aspiration precautions in place, continuing to monitor.
[2018-10-12 16:11] VITALS: BP_SYST 126
--- NOTE | 2018-10-12 17:20 | NUR ---
RN rounds/medications patient resting in chair, denies pain, denies shortness of breath, informed of Dr. Weber's notes, does not seem as if patient will discharge today, educated on medications uses and potential side effects, patient verbalized understanding and tolerated well, IV line is patent and infusing well, continuing to monitor, call light within reach, fall and aspiration precautions in place.
[2018-10-12] MEDS: RIVAROXABAN 15 MG TABLET PO SCH (17:21)
[2018-10-12] MEDS: MONTELUKAST 10 MG TABLET PO SCH (17:21)
--- NOTE | 2018-10-12 18:41 | NUR ---
Blood in Catheter/Paged Social Media Marketing Specialist patient states he did not pull on catheter was just sitting and noticed blood in the catheter, no clots noted at this time, paged Dr. Silva León at this time for orders. Addendum: 10/12/18 at 1855 by Randolph Penny RN Call back received orders received, will follow up.
--- NOTE | 2018-10-12 19:30 | NUR ---
Opening notes Pt AAOx4. Pt sitting in the chair, no s/s distress noted. Victor cath to gravity with red urine noted. Family at bedside. Will continue to monitor.
[2018-10-12 20:20] VITALS: BP_SYST 132
--- NOTE | 2018-10-12 20:30 | NUR ---
Catheter irrigation Pt AAO, family at bedside. Explained procedure to pt/family for bladder irrigation. Verbalized understanding. Emptied 400ml reddish urine from quezada bag. Irrigated catheter with 100ml NS per MD ordered, noted yellow urine with slight pink tinge in tubing. Pt states he felt some pain and burning. Placed new catheter securement device. Will continue to monitor urine output. Call light within reach.
[2018-10-12] MEDS: TERAZOSIN HCL 5 MG CAPSULE (HYTRIN) PO SCH (20:50)
--- NOTE | 2018-10-12 23:50 | NUR ---
Rounds Pt asleep, easily arousable. IV antibiotic administered as ordered L. forearm 22G clear, patent. Call light within reach. Bed alarm on. To monitor.
[2018-10-13 00:26] VITALS: BP_SYST 126
--- NOTE | 2018-10-13 03:35 | NUR ---
Rounds/Victor output Pt awake, no s/s distress noted and asked for some water. Pt aware of Fluid restriction. Victor catheter bag to gravity with pink tinged urine, no blood clots noted. Pt denies any pain or discomfort at this time. Call light within reach. Bed low/locked/alarm on. Will continue to monitor.
[2018-10-13] MEDS: PIPERACILLIN/TAZO 2.25G/DEX-IS 50 ML IV SCH (06:27)
[2018-10-13] MEDS: LEVOTHYROXINE SODIUM 0.088 MG TABLET PO SCH (06:28)
[2018-10-13] MEDS: PANTOPRAZOLE SODIUM 40 MG TAB PO SCH (06:28)
--- NOTE | 2018-10-13 06:30 | NUR ---
Closing notes Pt alert, awake, denies any pain at this time. Victor catheter with pink blood-tinged urine. IV antibiotic administered as ordered L. FA 22G clear, patent. Pt on fluid restriction. Safety measures in place/bed alarm on. Call light within reach. To endorse to AM nurse.
[2018-10-13 07:14] LABS: BASOPHILS % (AUTO) 0.1 % (0.0-2.0); EOSINOPHILS % (AUTO) 0.1 % (0.0-4.0); HEMATOCRIT 29.3 % (36-54); HEMOGLOBIN 9.8 g/dL (14.0-18.0); LYMPHOCYTES # (AUTO) 0.5 K/uL (1.0-5.5); LYMPHOCYTES % (AUTO) 4.1 % (20.5-51.5); MEAN CORPUSCULAR HEMOGLOBIN 31 pg (27-31); MEAN CORPUSCULAR HGB CONC 33 % (32-36); MEAN CORPUSCULAR VOLUME 94 fL (79.0-98.0); MONOCYTES # (AUTO) 0.1 K/uL (0.0-1.0); MONOCYTES % (AUTO) 0.7 % (1.7-9.3); NEUTROPHILS # (AUTO) 10.8 K/uL (1.8-7.7); PLATELET COUNT (AUTO) 319 K/uL (130-430); RED BLOOD CELL COUNT(AUTO) 3.12 MIL/uL (4.2-6.2); RED CELL DISTRIBUTION WIDTH 13.1 % (9.0-15.0); WHITE BLOOD COUNT (AUTO) 11.4 K/uL (4.8-10.8)
[2018-10-13 07:20] LABS: ANION GAP 11 (5-15); CHLORIDE 93 mmol/L (98-107); CREATININE 4.29 mg/dL (0.55-1.30); GLUCOSE 133 mg/dL (70-99); POTASSIUM 3.7 mmol/L (3.5-5.1); SODIUM SERUM 129 mmol/L (136-145); UREA NITROGEN, BLOOD 71 mg/dL (8-21)
[2018-10-13] MEDS: ALBUTEROL SULFATE 0.083% 2.5 MG/3 ML VIAL.NEB INH SCH (07:27)
[2018-10-13] MEDS: IPRATROPIUM BROM 0.5 MG/2.5 ML VIAL.NEB (ATROVENT) INH SCH (07:27)
[2018-10-13 08:00] VITALS: BP_SYST 132
--- NOTE | 2018-10-13 08:00 | NUR ---
initial notes rec patient awake alert with hob elevated. ivl intact and no infiltration noted. resp easy and unlabored and no sob noted. bed to the lowest position and side rails up and locked. call light within reached, family at bedside. assisted to the br and tolerating well with quezada and blood tinged urine noted. no clots noted.
[2018-10-13] MEDS: FINASTERIDE 5 MG TABLET (PROSCAR) PO SCH (09:20)
[2018-10-13] MEDS: TAMSULOSIN HCL 0.4 MG CAP PO SCH (09:20)
[2018-10-13] MEDS: CARVEDILOL 12.5 MG TABLET (COREG) PO SCH (09:20)
[2018-10-13] MEDS: SIMETHICONE 80 MG TAB.CHEW PO SCH (09:20)
[2018-10-13] MEDS: amLODIPine BESYLATE 5 MG TABLET PO SCH (09:21)
[2018-10-13] MEDS: methylPREDNISolone SOD SUCC 40 MG/ML VIAL IVP SCH (09:21)
[2018-10-13] MEDS: FLUTICASONE PROPIONATE 50 mCg/SPRAY 16 GM NS SCH (09:22)
[2018-10-13] MEDS: POLYETHYLENE GLYCOL 3350, 17 GM/ POWD.PACK PO SCH (09:22)
--- NOTE | 2018-10-13 10:00 | NUR ---
rounds seen by dr cummings and order patient to be discharged. spoke with patient's daughter and to [facility] employment case manager.
[2018-10-13 11:45] VITALS: BP_SYST 132
--- NOTE | 2018-10-13 12:00 | NUR ---
rounds and son was educated in [place] re care of the [place] cath and changing from [place] bag to a leg bag as well.
[2018-10-13 12:55] VITALS: BP_SYST 146
--- NOTE | 2018-10-13 13:05 | NUR ---
closing notes pt was discharged via wheelchair to his car. accomoanied by . ivl was removed and id band. reconcile meds explained to patient's son and a new prescription for patient to take. appt scheduled to pmd and urolgist at [facility] provided by and attached to disch paper. stable and needs attended.
--- NOTE | 2018-10-19 09:58 | NUR ---
DISCHARGE FOLLOW UP PHONE CALL: MILL FEEDER phoned pt @ [phone]. Pt stated he is doing well; eating, sleeping and toileting. Pt stated he has an appointment with his PCP today 10/19 @ 1:40PM and his urologist and GI doctor in 3 weeks. Pt stated he does not have any questions/concerns about the discharge instructions and MILL FEEDER encouraged pt to call if any arise. No further follow up call needed at this time.
== END 2018-10-13 13:05 | disposition home or self-care (01) | DRG 682 ==
LOC: SED 20:27 → SMU 23:56 → STU 10-09 18:34 → SMU 10-13 12:22
PROVIDERS: ADMIT Internal Medicine Hospice and Palliative Medicine; ATTEND Internal Medicine Hospice and Palliative Medicine
DX: N17.0 Acute kidney failure with tubular necrosis (principal); J18.9 Pneumonia, unspecified organism; E87.1 Hypo-osmolality and hyponatremia; K29.70 Gastritis, unspecified, without bleeding; I12.9 Hypertensive chronic kidney disease with stage 1 through stage 4 chronic kidney disease, or unspecified chronic kidney disease; N18.4 Chronic kidney disease, stage 4 (severe); K57.90 Diverticulosis of intestine, part unspecified, without perforation or abscess without bleeding; K40.90 Unilateral inguinal hernia, without obstruction or gangrene, not specified as recurrent; E03.9 Hypothyroidism, unspecified; E78.5 Hyperlipidemia, unspecified; I25.10 Atherosclerotic heart disease of native coronary artery without angina pectoris; I48.2 Chronic atrial fibrillation; K21.9 Gastro-esophageal reflux disease without esophagitis; K59.00 Constipation, unspecified; N40.1 Benign prostatic hyperplasia with lower urinary tract symptoms; Z96.653 Presence of artificial knee joint, bilateral; R33.8 Other retention of urine; K70.30 Alcoholic cirrhosis of liver without ascites; E11.22 Type 2 diabetes mellitus with diabetic chronic kidney disease; E11.21 Type 2 diabetes mellitus with diabetic nephropathy; D63.1 Anemia in chronic kidney disease; K64.8 Other hemorrhoids; K63.5 Polyp of colon; Z79.01 Long term (current) use of anticoagulants; Z87.891 Personal history of nicotine dependence; Z95.0 Presence of cardiac pacemaker; Z95.5 Presence of coronary angioplasty implant and graft; Z79.899 Other long term (current) drug therapy
CPT/HCPCS: 36415; 36600; 71045; 71250-TC; 76700-TC; 80048; 80053; 80061; 80074; 81000-TC; 82105; 82150-TC; 82390; 82435-TC; 82728; 82803-TC; 83036; 83516; 83540-TC; 83550-TC; 83605; 83690-TC; 83735-TC; 83880; 84100-TC; 84302-TC; 84443-TC; 84484; 85025; 85610-TC; 86038; 87040-TC; 87086; 93005; 93306; 94640; 94760; 96360; 99285; G0378; J1030; J1940; J2543; J7030; J7613; J7620